=== PATIENT | male | born 1990 | race American Indian/Alaskan Native ===

== ENCOUNTER 2018-09-25 09:05 | Emergency (ER) | payer MEDICAID ==
[2018-09-25 09:12] VITALS: RESP 18
[2018-09-25 09:13] VITALS: BMI 34.5
--- NOTE | 2018-09-25 09:55 | ED PDOC ---
HPI: CCC, URI, Sore Throat Time Seen by Provider: 09/25/18 09:05 Chief Complaint (Nursing): ENT Problem Chief Complaint (Provider): ENT Problem History Per: Patient History/Exam Limitations: no limitations Onset/Duration Of Symptoms: Days Current Symptoms Are (Timing): Still Present Location Of Pain: Throat Additional Complaint(s): 28 y/o male with no significant PMHx presents to the ED for evaluation of throat pain, beginning 4 days ago. Patient states that he did have an episode of nausea yesterday, but denies any other associated symptoms including vomiting. Patient additionally denies any medications for pain. PMD: None Past Medical History Reviewed: Historical Data, Nursing Documentation, Vital Signs Vital Signs: Last Vital Signs Temp 97.1 F L 09/25/18 09:11 Pulse 94 H 09/25/18 09:11 Resp 18 09/25/18 09:11 BP 138/83 09/25/18 09:11 Pulse Ox 97 09/25/18 09:11 Primary Care Provider: FAMILY PROVIDER,NO - Medical History PMH: No Chronic Diseases - Surgical History Surgical History: No Surg Hx - Family History Family History: States: No Known Family Hx - Social History Current smoker - smoking cessation education provided: Yes (1/2 pack per day) Alcohol: None Drugs: Denies - Home Medications Home Medications: Ambulatory Orders Medication Instructions Recorded Amoxicillin 500 mg PO BID #20 tablet 09/25/18 - Allergies Allergies/Adverse Reactions: Allergies Allergy/AdvReac Type Severity Reaction Status Date / Time No Known Allergies Allergy Verified 09/25/18 09:13 Review of Systems ROS Statement: Except As Marked, All Systems Reviewed And Found Negative ENT: Positive for: Throat Pain. Negative for: Ear Pain Gastrointestinal: Positive for: Nausea. Negative for: Vomiting Physical Exam - Reviewed Nursing Documentation Reviewed: Yes Vital Signs Reviewed: Yes - Physical Exam Appears: Positive for: No Acute Distress Head Exam: Positive for: ATRAUMATIC, NORMOCEPHALIC Skin: Positive for: Normal Color, Warm, Dry Eye Exam: Positive for: Normal appearance, EOMI, PERRL ENT: Positive for: Tonsillar Exudate (on the right) Neck: Positive for: Normal, Painless ROM Cardiovascular/Chest: Positive for: Regular Rate, Rhythm. Negative for: Murmur Respiratory: Positive for: Normal Breath Sounds. Negative for: Respiratory Distress Gastrointestinal/Abdominal: Positive for: Normal Exam Back: Positive for: Normal Inspection. Negative for: L CVA Tenderness, R CVA Tenderness Extremity: Positive for: Normal ROM. Negative for: Deformity Neurological/Psych: Positive for: Awake, Alert, Oriented (x3) - ECG O2 Sat by Pulse Oximetry: 97 (RA) Pulse Ox Interpretation: Normal Medical Decision Making Medical Decision Making: Time: 941 Impression: Throat Pain rule out strep Plan: --Ibuprofen 600 mg PO --Rapid Strep Group A Antigen Time: 949 --Patient is stable for discharge home - we are awaiting results of strep test, however given the high probablity of it being strep, will treat and follow up outpt. Patient to be given prescription for Amoxicillin and instructions to take as prescribed. Scribe Attestation: Documented by Cory Cano, acting as a scribe forSarah Garcia MD. Provider Scribe Attestation: All medical record entries made by the Scribe were at my direction and personally dictated by me. I have reviewed the chart and agree that the record accurately reflects my personal performance of the history, physical exam, medical decision making, and the department course for this patient. I have also personally directed, reviewed, and agree with the discharge instructions and disposition. Disposition - Clinical Impression Clinical Impression: Strep pharyngitis - Patient ED Disposition Is Patient to be Admitted: No Counseled Patient/Family Regarding: Studies Performed, Diagnosis, Need For Followup, Rx Given - Disposition Referrals: [facility] [Outside] [facility] [Outside] Disposition: Routine/Home Disposition Time: 09:50 Condition: IMPROVED Additional Instructions: follow up in the clinic in 1 week return to the ED with any worsening or concerning symptoms Prescriptions: Amoxicillin 500 mg PO BID #20 tablet Instructions: Sore Throat, Adult (DC), Strep Throat (DC) Forms: [employer] (Czech)
[2018-09-25 10:34] VITALS: BP 139/82; PULSE 84; TEMP 98.1
[2018-09-25 20:38] VITALS: O2SAT 97
== END 2018-09-25 10:17 | disposition home or self-care (01) ==
LOC: H.ER 09:05
DX: J02.0 Streptococcal pharyngitis (principal); F17.210 Nicotine dependence, cigarettes, uncomplicated